=== PATIENT | male | born 1935 | race Caucasian/White ===

== ENCOUNTER 2017-06-01 09:05 | Inpatient (IN) | payer MEDICARE, OTHER ==
[~2017-06-01] VITALS: Ht 182.9 cm; Wt 94.6 kg
[2017-06-01] VITALS (12 sets, daily range): BP systolic 86–103; BP diastolic 50–59; PULSE 62–107; RESP 20–30; TEMP 99.2–99.4; O2SAT 89–95
[~2017-06-01 09:05] MED LIST: ASPI1TAB69 PO; LIPI10TA PO; PRESCAP6 PO; REST0.05 EACH EYE; ROPI8TAB PO; TIMO0.5S30 EACH EYE; VENL75TA PO; ZYRT10CA PO
[2017-06-01] MEDS ORDERED: SODIUM CHLOR 0.9% 1000 ML INJ 1,000 ML IV ONE (09:30)
[2017-06-01 09:40] LABS: BLOOD GAS BASE EXCESS 1.7 mmol/L (-2-2); BLOOD GAS CARBOXYHEMOGLOBIN 1.4 % (0-4); BLOOD GAS HCO3 25 mmol/L (22-26); BLOOD GAS METHEMOGLOBIN 0.8 % (0-2); BLOOD GAS O2 HGB SATURATION 90 % (90-100); BLOOD GAS OXYGEN CONTENT 17.8 Vol % (12.0-20.0); BLOOD GAS PCO2 33 mmHg (38-42); BLOOD GAS PO2 59 mmHG (61-120); BLOOD GAS TOTAL HGB 14.1 G/DL (12.0-16.0); CRITICAL VALUE YES; DRAW SITE RT RADIAL; FIO2 21 %; NUMBER OF ARTERIAL PUNCTURES 1; OXYGEN DEVICE ROOM AIR; STAT YES; TEMP CORR TO 98.6
[2017-06-01 09:47] LABS: AUTOMATED NEUTROPHIL # 6.2 TH/MM3 (1.8-7.7); BASOPHIL % 0.3 % (0.0-2.0); EOSINOPHIL % 0.2 % (0.0-4.0); HEMATOCRIT 42.2 % (39.0-51.0); HEMO FLAGS DIFF FINAL; LYMPH % 11.1 % (9.0-44.0); LYMPHOCYTE # 0.8 TH/MM3 (1.0-4.8); MEAN CELL VOLUME 89.6 FL (80.0-100.0); MEAN CORPUSCULAR HEMOGLOBIN 30.9 PG (27.0-34.0); MEAN CORPUSCULAR HGB CONC 34.5 % (32.0-36.0); MONO % 4.8 % (0.0-8.0); NEUT % 83.6 % (16.0-70.0); PLATELET COUNT 132 TH/MM3 (150-450); RED BLOOD COUNT 4.71 MIL/MM3 (4.50-5.90); RED CELL DISTRIBUTION WIDTH 13.8 % (11.6-17.2); WHITE BLOOD COUNT 7.4 TH/MM3 (4.0-11.0)
--- NOTE | 2017-06-01 09:50 | RADRPT ---
EXAM DATE/TIME: 06/01/2017 09:19 [facility] COMPARISON: No previous studies available for comparison. INDICATIONS : Cough and congestion. MEDICAL HISTORY : Parkinsons. SURGICAL HISTORY : Fusion, cervical. ENCOUNTER: Initial ACUITY: 3 days PAIN SCORE: 0/10 LOCATION: Bilateral chest FINDINGS: There is mild cardiomegaly and patchy left basilar airspace disease. Osseous structures are intact. N o effusions. CONCLUSION: Left lower lobe airspace disease. Victor Manuel Owens MD on June 01, 2017 at 9:47 Board Certified Radiologist. This report was verified electronically.
[2017-06-01 09:51] LABS: APTT (PATIENT) 27.3 SEC (24.3-30.1); PROTHROMBIN TIME - PATIENT 11.4 SEC (9.8-11.6)
--- NOTE | 2017-06-01 10:02 | RADRPT ---
EXAM DATE/TIME: 06/01/2017 09:41 [facility] COMPARISON: No previous studies available for comparison. INDICATIONS : Patient with weakness, increased confusion. ORAL CONTRAST: No oral contrast ingested. RADIATION DOSE: 10.55 CTDIvol (mGy) MEDICAL HISTORY : Parkinson's. Hypertension. Carcinoma, prostate. SURGICAL HISTORY : cervical laminectomy ENCOUNTER: Initial ACUITY: 1 day PAIN SCALE: 4/10 LOCATION: lower quadrant TECHNIQUE: Volumetric scanning of the abdomen and pelvis was performed. Using automated exposure control and ad justment of the mA and/or kV according to patient size, radiation dose was kept as low as reasonably achievable to obtain optimal diagnostic quality images. DICOM format image data is available electro nically for review and comparison. FINDINGS: There is mild dilatation of the ascending aorta up to 4.1 cm. Atherosclerotic calcification of the ao rta and iliac vasculature and coronary arteries identified. Urinary bladder is unremarkable. Small fa t-containing right inguinal hernia. The patient is status post prostatectomy with clips in the pelvis . There is diverticulosis of the sigmoid colon and descending colon as well as transverse and ascendi ng colon without diverticulitis. There are inflammatory changes seen in the right lower quadrant surr ounding a blind-ending tubular structure arising off the cecum measuring up to 10 mm in diameter. Thi s is characteristic of acute appendicitis. There is a small amount of free fluid adjacent to the tip the appendix and perforation is difficult to exclude. There is an appendicolith measuring 9.9 mm. The re is no adenopathy. Coarse calcifications of the right adrenal gland are identified. Calcified splen ic granulomas are present. Gallbladder unremarkable. A liver, pancreas, left kidney unremarkable. 4 c m right upper pole renal cyst. Lung bases are clear. Degenerative changes of the spine are noted. CONCLUSION: 1. Acute appendicitis. 2. Diverticulosis. 3. Atherosclerosis. 4. Right renal cyst. 5. Fat containing right inguinal hernia. Victor Manuel Owens MD on June 01, 2017 at 9:55 Board Certified Radiologist. This report was verified electronically.
--- NOTE | 2017-06-01 10:02 | PD ---
HPI Chief Complaint: General Weakness Time Seen by Provider: 09:12 Travel History International Travel<30 days: No Contact w/Intl Traveler<30days: No Traveled to known affect area: No History of Present Illness HPI GEN WEAKNESS PER FAMILY MEMBER OVER LAST 2 DAYS, IN PAST THIS HAS BEEN DUE TO UTI OR PNA. STATES OCCASIONAL COUGH BUT WITHOUT SPUTUM PRODUCTION. NO FEVER AT HOME. BUT IS REQUIRING MORE PHYSICAL ASSISTANCE THAN USUAL. ONLY MAJOR HX IS PARKINSON'S IS NOT OXYGEN DEPENDANT, AND HAS NO H/O COPD/EMPHYSEMA/OR/CHF. PFSH Past Medical History Asthma: No Autoimmune Disease: No Blood Disorders: No Depression: Yes Cancer: Yes (PROSTATE) Cardiovascular Problems: No High Cholesterol: Yes COPD: No Diabetes: No Patient Takes Glucophage: No Diminished Hearing: Yes (bilat) Endocrine: No Glaucoma: Yes Genitourinary: Yes (PROSTATE CANCER) Headaches: Yes Hepatitis: No Hiatal Hernia: No Hypertension: Yes Immune Disorder: No Musculoskeletal: Yes (ARTHRITIS) Neurologic: Yes (PARKINSON'S DISEASE) Parkinson's Disease: Yes Psychiatric: Yes Respiratory: No Immunizations Current: Yes Thyroid Disease: No Past Surgical History Abdominal Surgery: No AICD: No Body Medical Devices: PENILE PROTHESIS Cardiac Surgery: No Ear Surgery: No Endocrine Surgery: No Eye Surgery: Yes (BILATERAL CATARACT EXTRACTION W/LENS IMPLANT; ) Genitourinary Surgery: Yes (PROSTATECTOMY/PENILE IMPLANT) Joint Replacement: No Neurologic Surgery: Yes (ANTERIOR CERVICAL LAMINECTOMY ) Oral Surgery: No Pacemaker: No Prostatectomy: Yes Thoracic Surgery: No Tonsillectomy: Yes Other Surgery: Yes Social History Alcohol Use: No Tobacco Use: No Substance Use: No Allergies-Medications (Allergen,Severity, Reaction): Coded Allergies: Penicillin (Verified Allergy, Mild, 04/13/17) Tobrex (Verified Allergy, Mild, 04/13/17) Reported Meds & Prescriptions Reported Meds & Active Scripts Active Reported Gabapentin 100 Mg Cap 200 Mg PO HS Gabapentin 100 Mg Cap 100 Mg PO TID Sinemet (Carbidopa-Levodopa) 25-100 Mg Tab 2 Tab PO TID Tramadol (Tramadol HCl) 50 Mg Tab 50 Mg PO Q6H PRN Ropinirole 4 Mg Tab 4 Mg PO HS 14 Days Aleve (Naproxen Sodium) 220 Mg Capsule 220-440 Mg PO BID PRN Cetirizine (Cetirizine HCl) 10 Mg Tab 10 Mg PO DAILY Aspirin Adult Low Strength (Aspirin) 81 Mg Tabdr 81 Mg PO MOWEFR Take 1 tablet daily on Wednesday,Wednesday and Wednesday Ropinirole ER 2 Mg Tab 18 Mg PO DAILY Preservision-Lutein (Multiple Vitamins W/ Minerals) 1 Cap 1 Cap PO DAILY Restasis Opth 0.05% (Cyclosporine Opth 0.05%) 0.05% Emul 1 Drop EACH EYE BID Effexor (Venlafaxine HCl) 75 Mg Tab 75 Mg PO DAILY Lipitor (Atorvastatin Calcium) 10 Mg Tab 10 Mg PO HS Review of Systems ROS Limitations: Altered Mental Status General / Constitutional: Positive: Other (GEN WEAKNESS) Respiratory: Positive: Cough Physical Exam Narrative GENERAL: SKIN: Warm and dry. HEAD: Atraumatic. Normocephalic. EYES: Pupils equal and round. No scleral icterus. No injection or drainage. ENT: No nasal bleeding or discharge. Mucous membranes pink and moist. NECK: Trachea midline. No JVD. CARDIOVASCULAR: Regular rate and rhythm. RESPIRATORY: No accessory muscle use. CRACKLES OVER LEFT LUNG MOSLEY GASTROINTESTINAL: Abdomen soft, NONdistended. HOWEVER TTPERCUSSION THROUGHOUT LOWER QUADRANTS MUSCULOSKELETAL: Extremities without clubbing, cyanosis, or edema. No obvious deformities. NEUROLOGICAL: Awake and alert. No obvious cranial nerve deficits. Motor grossly within normal limits. Five out of 5 muscle strength in the arms and legs. Normal speech. RESTING TREMOR, FOLLOWS COMMANDS BUT GENERALLY WEAK AND REQUIRED ASSISTANCE TO TRANSFER TO BED PSYCHIATRIC: Appropriate mood and affect; insight and judgment normal. Data Data Last Documented VS Vital Signs Date Time Temp Pulse Resp B/P Pulse Ox O2 Delivery O2 Flow Rate FiO2 06/01/17 10:30 80 24 98/58 93 Nasal Cannula 2 06/01/17 09:06 99.2 Orders Electrocardiogram (06/01/17 09:13) Complete Blood Count With Diff (06/01/17 09:13) Comprehensive Metabolic Panel (06/01/17 09:13) Prothrombin Time / Inr (Pt) (06/01/17 09:13) Act Partial Throm Time (Ptt) (06/01/17 09:13) Lactic Acid Sepsis Protocol (06/01/17 09:13) Lipase (06/01/17 09:13) Ckmb (Isoenzyme) Profile (06/01/17 09:13) Troponin I (06/01/17 09:13) Urinalysis - C+S If Indicated (06/01/17 09:13) Influenzae A/B Antigen (06/01/17 09:13) Blood Culture (06/01/17 09:13) Chest, Single Ap (06/01/17 09:13) Arterial Blood Gas (Abg) (06/01/17 09:13) Blood Glucose (06/01/17 09:13) Ecg Monitoring (06/01/17 09:13) Iv Access Insert/Monitor (06/01/17 09:13) Oximetry (06/01/17 09:13) Oxygen Administration (06/01/17 09:13) Urinary Catheter Insert/Apply (06/01/17 09:13) Sodium Chlor 0.9% 1000 Ml Inj (Ns 1000 M (06/01/17 09:30) Ct Abd/Pel W/O Iv Contrast (06/01/17 09:24) Levofloxacin 500 Mg Premix Inj (Levaquin (06/01/17 10:15) Sodium Chlorid 0.9% 500 Ml Inj (Ns 500 M (06/01/17 10:15) Metronidazole 500 Mg Inj (Flagyl 500 Mg (06/01/17 10:16) Norepinephrine-Dextrose Drip (Levophed-D (06/01/17 10:30) Admit Order (Ed Use Only) (06/01/17 11:05) Labs Laboratory Tests Test 06/01/17 06/01/17 09:30 09:31 Blood Gas Puncture Site RT RADIAL Blood Gas Patient Temperature 98.6 Blood Gas HCO3 25 mmol/L Blood Gas Base Excess 1.7 mmol/L Blood Gas Oxygen Saturation 90 % Arterial Blood pH 7.49 Arterial Blood Partial 33 mmHg Pressure CO2 Arterial Blood Partial 59 mmHG Pressure O2 Arterial Blood Oxygen Content 17.8 Vol % Arterial Blood 1.4 % Carboxyhemoglobin Arterial Blood Methemoglobin 0.8 % Blood Gas Hemoglobin 14.1 G/DL Oxygen Delivery Device ROOM AIR Blood Gas Inspired Oxygen 21 % White Blood Count 7.4 TH/MM3 Red Blood Count 4.71 MIL/MM3 Hemoglobin 14.5 GM/DL Hematocrit 42.2 % Mean Corpuscular Volume 89.6 FL Mean Corpuscular Hemoglobin 30.9 PG Mean Corpuscular Hemoglobin 34.5 % Concent Red Cell Distribution Width 13.8 % Platelet Count 132 TH/MM3 Mean Platelet Volume 10.1 FL Neutrophils (%) (Auto) 83.6 % Lymphocytes (%) (Auto) 11.1 % Monocytes (%) (Auto) 4.8 % Eosinophils (%) (Auto) 0.2 % Basophils (%) (Auto) 0.3 % Neutrophils # (Auto) 6.2 TH/MM3 Lymphocytes # (Auto) 0.8 TH/MM3 Monocytes # (Auto) 0.4 TH/MM3 Eosinophils # (Auto) 0.0 TH/MM3 Basophils # (Auto) 0.0 TH/MM3 CBC Comment DIFF FINAL Differential Comment Prothrombin Time 11.4 SEC Prothromb Time International 1.0 RATIO Ratio Activated Partial 27.3 SEC Thromboplast Time Sodium Level 138 MEQ/L Potassium Level 3.8 MEQ/L Chloride Level 104 MEQ/L Carbon Dioxide Level 25.7 MEQ/L Anion Gap 8 MEQ/L Blood Urea Nitrogen 19 MG/DL Creatinine 1.15 MG/DL Estimat Glomerular Filtration 61 ML/MIN Rate Random Glucose 112 MG/DL Lactic Acid Level 1.2 mmol/L Calcium Level 8.8 MG/DL Total Bilirubin 1.0 MG/DL Aspartate Amino Transf 16 U/L (AST/SGOT) Alanine Aminotransferase 8 U/L (ALT/SGPT) Alkaline Phosphatase 52 U/L Total Creatine Kinase 87 U/L Troponin I LESS THAN 0.02 NG/ML Total Protein 6.8 GM/DL Albumin 3.7 GM/DL Lipase 94 U/L [facility] Medical Decision Making Medical Screen Exam Complete: Yes Emergency Medical Condition: Yes Medical Record Reviewed: Yes Interpretation(s) (HEAVY MOTION ARTIFACT DUE TO PARKINSON'S) EKG: NSR 91, IRBBB PATTERN, NO OBVIOUS STEMI PATTERN NOTED..................ABG ON RA (NL PH AND PCO2 HOWEVER HYPOXEMIA OF 58.5, WILL ADD SUPPLEMENTAL OXYGEN) Differential Diagnosis SEPSIS (SOURCE PNA V ABD V UTI) AMS DUE TO ELECTROLYTE/HYPOTENSION/HYPOXEMIA Narrative Course PATIENT ARRIVED HYPOTENSIVE AND C/O GEN WEAKNESS, DURING EVALUATION WAS FOUND TO HAVE LLL PNA WITH HYPOXEMIA, GIVEN SUPPLEMENTAL OXYGEN AND LEVAQUIN SHERI. HYPOTENSION RESPONDED TO IVF BOLUS SBP INCREASE FROM 80'S TO 95 ON 1 L NS. THEN ADDED IVF NS 500ML AND MAINTAINED AROUND HIGH 90'S TO LOW 100 SBP, STANDBY NOREPI AVAILABLE IN CASE PATIENT REQUIRES IT. ONCE RETURNED FROM CT FOUND TO HAVE APPY, STARTED FLAGYL AND CALLED DR DANIELLE. ALSO D/W DR BEYER. PATIENT HAS DECREASED PAIN AND SBP HAS REMAINED NEAR 100 SYSTOLIC, PT CONTINUES TO BE A/O X 4....ALTHOUGH HE WAS ADDED TO SURGERY LIST, UNFORTUNATELY THERE ARE MULTIPLE CRITICAL SURGICAL CASES AHEAD OF HIM, DR DANIELLE STANDING BY TO OPERATE SOON OR OPENS. Critical Care Narrative CRITICAL CARE NOTE: With evaluation of the patient, labs, EKG, receipt of radiologic studies, administration of medications, reevaluation the patient and discussion of the patient with the admitting physicians, the total critical care time was [60] minutes. Time to perform other separately billable procedures was not included in the critical care time. Physician Communication Physician Communication CASE DISCUSSED FULLY WITH DR DANIELLE (GEN DEE) AT 1022 (CALLED AT [address] REVIEWED) AT [address] BEYER (LEAD APPLICATION ARCHITECT) WHO WILL COME SEE PATIENT IN ED WITHIN 15MIN. Diagnosis Primary Impression: ACUTE APPENDICITIS Additional Impressions: LLL PNEUMONIA WITH HYPOXEMIA HYPOTENSION Sharif Hauser MD Jun 01, 2017 10:02
[2017-06-01 10:07] LABS: ANION GAP 8 MEQ/L (5-15); AST (GOT) 16 U/L (15-37); BICARBONATE 25.7 MEQ/L (21.0-32.0); BLOOD UREA NITROGEN 19 MG/DL (7-18); CHLORIDE 104 MEQ/L (98-107); GLOMERULAR FILTRATION RATE 61 ML/MIN (>89); POTASSIUM 3.8 MEQ/L (3.5-5.1); SODIUM (NA) 138 MEQ/L (136-145)
[2017-06-01 10:08] LABS: ALT (GPT) 8 U/L (12-78)
[2017-06-01 10:11] LABS: ALKALINE PHOSPHATASE 52 U/L (45-117)
[2017-06-01] MEDS ORDERED: LEVOFLOXACIN 500 MG PREMIX INJ 100 ML IV ONE (10:15)
[2017-06-01] MEDS ORDERED: SODIUM CHLORID 0.9% 500 ML INJ 500 ML IV ONE (10:15)
[2017-06-01] MEDS ORDERED: metroNIDAZOLE 500 MG INJ 100 ML IV STA (10:16)
[2017-06-01 10:26] LABS: CREATINE KINASE 87 U/L (39-308)
[2017-06-01] MEDS ORDERED: NOREPINEPHRINE-DEXTROSE DRIP 250 ML IV SCH (10:30)
[2017-06-01] MEDS ORDERED: CETI10 PO (10:54)
[2017-06-01] MEDS ORDERED: ROPI2TAB23 PO (10:54)
[2017-06-01] MEDS ORDERED: ROPI4TAB PO (10:54)
[2017-06-01] MEDS ORDERED: NAPR220C22 PO (10:54)
[2017-06-01] MEDS ORDERED: SINE25TA PO (10:54)
[2017-06-01] MEDS ORDERED: GABA100C4 PO ×2 (10:54)
[2017-06-01] MEDS ORDERED: ASPI1TAB91 PO (10:54)
[2017-06-01] MEDS ORDERED: TRAM50TA PO (10:54)
[2017-06-01] MEDS ORDERED: ONDANSETRON HCL 4 MG/2 ML VIAL IV PUSH ONE (12:00)
[2017-06-01] MEDS ORDERED: NEOSTIGMINE 3 MG/3 ML SYR IV ONE (12:00)
[2017-06-01] MEDS ORDERED: PHENYLEPH/NS 1000 MCG/10 ML SYR IV ONE (12:00)
[2017-06-01] MEDS ORDERED: PROPOFOL 200 MG/20 ML AMP IV ONE (12:00)
[2017-06-01] MEDS ORDERED: MAGNESIUM HYDROXIDE SUSP 30 ML CUP PO PRN (12:15)
[2017-06-01] MEDS ORDERED: ONDANSETRON HCL 4 MG/2 ML VIAL IV PRN (12:15)
[2017-06-01] MEDS ORDERED: CHLORHEXIDINE GLUCONATE 2 % 1 PACK (2 CLOTHS) TOP PRN (12:15)
[2017-06-01] MEDS ORDERED: MISCELLANEOUS NURSING INFORMATION XX SCH (12:15)
[2017-06-01] MEDS ORDERED: METOCLOPRAMIDE HCL 10 MG/2 ML VIAL IV PRN (12:15)
[2017-06-01] MEDS ORDERED: SODIUM CHLORIDE 0.9% FLUSH 10 ML FLUSH IV FLUSH PRN (12:15)
[2017-06-01] MEDS ORDERED: LACTULOSE SYRUP 20 GM/30 ML CUP PO PRN (12:15)
[2017-06-01] MEDS ORDERED: SENNOSIDES 8.6 MG TAB PO PRN (12:15)
[2017-06-01] MEDS ORDERED: RESP: ALBUTEROL 2.5 MG/IPRATROPIUM 0.5 MG NEB (PRN) INH (12:15)
[2017-06-01] MEDS ORDERED: ACETAMINOPHEN 325 MG TAB PO PRN (12:15)
[2017-06-01] MEDS ORDERED: BISACODYL 10 MG SUPP RECTAL PRN (12:15)
--- NOTE | 2017-06-01 12:27 | HHI.HP ---
HPI Service Critical Care Medicine Primary Care Physician Amelia Melvin MD Admission Diagnosis ACUTE APPY/LLL PNA WITH HYPOXEMIA/SEPTIC SHOCK Diagnosis: Chief Complaint: Abdominal pain Travel History International Travel<30 Days: No Contact w/Intl Traveler <30 Da: No Traveled to Known Affected Are: No Sepsis Criteria SIRS Criteria (2 or more): Heart rate over 90 History of Present Illness HPI: s 82-year-old male with a medical history significant for Parkinson's disease who developed lower abdominal pain 1 day prior to presentation. He was noted to be hypotensive on arrival in the ER. Hypotension responded to 1 L fluid bolus. He underwent imaging studies including CT abdomen and pelvis which revealed acute appendicitis. Chest x-ray showed a left lower lobe infiltrate. Ration was initiated on empiric antibiotic coverage with IV Levaquin and Flagyl. Dr. Stewart from general surgery was contacted and per ER physician is planning appendectomy today. Critical care service was contacted to accept patient for admission. When I evaluated the patient and the ER he was resting in the ER stretcher comfortably did not appear to be in any acute distress. History was obtained by discussion with patient and his family members as well as reviewing records and discussion with ER physician and ER nursing staff. History PFSH Past Medical History Asthma: No Autoimmune Disease: No Blood Disorders: No Depression: Yes Cancer: Yes (PROSTATE) Cardiovascular Problems: No High Cholesterol: Yes COPD: No Diabetes: No Patient Takes Glucophage: No Diminished Hearing: Yes (bilat) Endocrine: No Glaucoma: Yes Genitourinary: Yes (PROSTATE CANCER) Headaches: Yes Hepatitis: No Hiatal Hernia: No Hypertension: Yes Immune Disorder: No Musculoskeletal: Yes (ARTHRITIS) Neurologic: Yes (PARKINSON'S DISEASE) Parkinson's Disease: Yes Psychiatric: Yes Respiratory: No Immunizations Current: Yes Thyroid Disease: No Past Surgical History Abdominal Surgery: No AICD: No Body Medical Devices: PENILE PROTHESIS Cardiac Surgery: No Ear Surgery: No Endocrine Surgery: No Eye Surgery: Yes (BILATERAL CATARACT EXTRACTION W/LENS IMPLANT; ) Genitourinary Surgery: Yes (PROSTATECTOMY/PENILE IMPLANT) Joint Replacement: No Neurologic Surgery: Yes (ANTERIOR CERVICAL LAMINECTOMY ) Oral Surgery: No Pacemaker: No Prostatectomy: Yes Thoracic Surgery: No Tonsillectomy: Yes Other Surgery: Yes Social History Alcohol Use: No Tobacco Use: No Substance Use: No Allergies-Medications Allergies-Medications (Allergen,Severity, Reaction): Coded Allergies: Penicillin (Verified Allergy, Mild, 04/13/17) Tobrex (Verified Allergy, Mild, 04/13/17) Reported Meds & Prescriptions Reported Meds & Active Scripts Active Reported Gabapentin 100 Mg Cap 200 Mg PO HS Gabapentin 100 Mg Cap 100 Mg PO TID Sinemet (Carbidopa-Levodopa) 25-100 Mg Tab 2 Tab PO TID Tramadol (Tramadol HCl) 50 Mg Tab 50 Mg PO Q6H PRN Ropinirole 4 Mg Tab 4 Mg PO HS 14 Days Aleve (Naproxen Sodium) 220 Mg Capsule 220-440 Mg PO BID PRN Cetirizine (Cetirizine HCl) 10 Mg Tab 10 Mg PO DAILY Aspirin Adult Low Strength (Aspirin) 81 Mg Tabdr 81 Mg PO MOWEFR Take 1 tablet daily on Wednesday,Wednesday and Wednesday Ropinirole ER 2 Mg Tab 18 Mg PO DAILY Preservision-Lutein (Multiple Vitamins W/ Minerals) 1 Cap 1 Cap PO DAILY Restasis Opth 0.05% (Cyclosporine Opth 0.05%) 0.05% Emul 1 Drop EACH EYE BID Effexor (Venlafaxine HCl) 75 Mg Tab 75 Mg PO DAILY Lipitor (Atorvastatin Calcium) 10 Mg Tab 10 Mg PO HS ROS Review of Systems ROS Limitations: Altered Mental Status General / Constitutional: Positive: Other (GEN WEAKNESS) Respiratory: Positive: Cough GI: Abd pain Physical Exam Vital Signs Vital Signs Date Time Temp Pulse Resp B/P Pulse Ox O2 Delivery O2 Flow Rate FiO2 06/01/17 11:37 80 26 101/59 94 Nasal Cannula 2 06/01/17 09:23 92 Nasal Cannula 2 06/01/17 09:23 92 Nasal Cannula 2 06/01/17 09:19 93 26 94/58 90 06/01/17 09:06 99.2 99 20 86/53 91 Room Air Physical Exam HEENT/Neuro: No pallor or icterus, tongue moist, NEO, Awake alert oriented 3 , nonfocal grossly, moving all 4 extremities Neck: No JVD Chest/pulmonary: CTA bilaterally Cardiovascular: S1-S2 regular no gallop or murmur GI/abdomen: Soft, tenderness in lower abdomen especially right lower quadrant with minimal guarding, bowel sounds present. No organomegaly appreciated Extremities: Warm bilaterally, no edema Laboratory Laboratory Tests Test 06/01/17 06/01/17 09:30 09:31 Blood Gas Puncture Site RT RADIAL Blood Gas Patient Temperature 98.6 Blood Gas HCO3 25 Blood Gas Base Excess 1.7 Blood Gas Oxygen Saturation 90 Arterial Blood pH 7.49 Arterial Blood Partial 33 Pressure CO2 Arterial Blood Partial 59 Pressure O2 Arterial Blood Oxygen Content 17.8 Arterial Blood 1.4 Carboxyhemoglobin Arterial Blood Methemoglobin 0.8 Blood Gas Hemoglobin 14.1 Oxygen Delivery Device ROOM AIR Blood Gas Inspired Oxygen 21 White Blood Count 7.4 Red Blood Count 4.71 Hemoglobin 14.5 Hematocrit 42.2 Mean Corpuscular Volume 89.6 Mean Corpuscular Hemoglobin 30.9 Mean Corpuscular Hemoglobin 34.5 Concent Red Cell Distribution Width 13.8 Platelet Count 132 Mean Platelet Volume 10.1 Neutrophils (%) (Auto) 83.6 Lymphocytes (%) (Auto) 11.1 Monocytes (%) (Auto) 4.8 Eosinophils (%) (Auto) 0.2 Basophils (%) (Auto) 0.3 Neutrophils # (Auto) 6.2 Lymphocytes # (Auto) 0.8 Monocytes # (Auto) 0.4 Eosinophils # (Auto) 0.0 Basophils # (Auto) 0.0 CBC Comment DIFF FINAL Differential Comment Prothrombin Time 11.4 Prothromb Time International 1.0 Ratio Activated Partial 27.3 Thromboplast Time Sodium Level 138 Potassium Level 3.8 Chloride Level 104 Carbon Dioxide Level 25.7 Anion Gap 8 Blood Urea Nitrogen 19 Creatinine 1.15 Estimat Glomerular Filtration 61 Rate Random Glucose 112 Lactic Acid Level 1.2 Calcium Level 8.8 Total Bilirubin 1.0 Aspartate Amino Transf 16 (AST/SGOT) Alanine Aminotransferase 8 (ALT/SGPT) Alkaline Phosphatase 52 Total Creatine Kinase 87 Troponin I LESS THAN 0.02 Total Protein 6.8 Albumin 3.7 Lipase 94 Date/Time Procedure Status Source Growth 06/01/17 10:09 Influenza Types A,B Antigen (ANNA) - Final Complete Nasal Washing NEGATIVE FOR FLU A AND B ANTIGEN.... 06/01/17 09:29 Aerobic Blood Culture Received Blood Peripheral Pending 06/01/17 09:29 Anaerobic Blood Culture Received Blood Peripheral Pending Result Diagram: 06/01/1731 06/01/17930 Imaging Last Impressions Abdomen/Pelvis CT 06/01/17923 Signed Impressions: Service Date/Time: Thursday, June 01, 2017 09:41 - CONCLUSION: 1. Acute appendicitis. 2. Diverticulosis. 3. Atherosclerosis. 4. Right renal cyst. 5. Fat containing right inguinal hernia. Victor Manuel Owens MD Chest X-Ray 06/01/1713 Signed Impressions: Service Date/Time: Thursday, June 01, 2017 09:19 - CONCLUSION: Left lower lobe airspace disease. Victor Manuel Owens MD Assessment and Plan Assessment and Plan 82-year-old male with: Abdominal pain Acute appendicitis Hypotension Parkinson's disease History of prostate cancer Plan: Neuro: Resume medications for Parkinson's when cleared by general surgery. Currently nothing by mouth. Follow neuro status. Cardiovascular: Status post 1.5 L normal saline bolus. We'll continue maintenance IV fluids with normal saline at 100 cc an hour. Watch for hypotension. Pulmonary: Supplemental O2 as needed. GI/liver: Keep patient nothing by mouth. Gen. surgery consulted for acute appendicitis. ER physician as already discussed with Dr. Stewart and I was informed that patient will be going to the OR. Renal/: Strict intake output, monitor and replete elect lites, follow BUN/ creatinine. IV hydration ID: Empiric antibiotic coverage with IV Levaquin and Flagyl. Follow-up cultures. Endocrine: Watch for hyperglycemia, SSI for glycemic control if needed. Prophylaxis: PPI/SCDs. Subcutaneous heparin when okay with general surgery. Discussed with patient as well as his family members at bedside regarding current clinical status and plan of care and they voiced understanding. Further recommendations per general surgery. Varghese Lama MD Jun 01, 2017 12:27
[2017-06-01] MEDS: SODIUM CHLOR 0.9% 1000 ML INJ 1,000 ML IV SCH ×2 (12:30→21:22)
[2017-06-01] MEDS: PANTOPRAZOLE SODIUM 40 MG VIAL IV SCH (12:59)
--- NOTE | 2017-06-01 13:07 | PD.CONS ---
HPI Service General surgery Consult Requested By Reason for Consult Appendicitis Primary Care Physician Amelia Melvin MD History of Present Illness Mr. Huffman is an 82-year-old male presents with weakness and abdominal pain. He felt poorly for a couple of days and he has a history of pneumonia and presented to the emergency department. On exam by the emergency department physician he had significant abdominal pain and therefore CT scan of the abdomen and pelvis was ordered. He was noted to have acute appendicitis. The patient's initial systolic blood pressure was in the 90s and he said some hypoxia requiring O2 administration. There was also concern for left lower lobe pneumonia on chest x-ray. White blood count is normal but he does have elevated neutrophil percentage. His daughter who is an intensive care nurse was present with him. Last night he did have increase in his baseline tremor which sounds as if it may have been secondary to fever and chills. His daughter reports his temperature was taken at home and it was 101.8. Review of Systems Constitutional: COMPLAINS OF: Fever, Chills Eyes: DENIES: Eye inflammation, Eye pain Respiratory: COMPLAINS OF: Cough Cardiovascular: DENIES: Chest pain, Palpitations Gastrointestinal: COMPLAINS OF: Abdominal pain, DENIES: Nausea, Vomiting Integumentary: DENIES: Pruritus, Rash Neurologic: COMPLAINS OF: Tremor, DENIES: Seizures Psychiatric: DENIES: Confusion, Mood changes Past Family Social History Past Medical History Parkinson's disease Prostate cancer Past Surgical History Prostatectomy Cervical laminectomy Shoulder surgery Reported Medications Reported Meds & Active Scripts Active Reported Gabapentin 100 Mg Cap 200 Mg PO HS Gabapentin 100 Mg Cap 100 Mg PO TID Sinemet (Carbidopa-Levodopa) 25-100 Mg Tab 2 Tab PO TID Tramadol (Tramadol HCl) 50 Mg Tab 50 Mg PO Q6H PRN Ropinirole 4 Mg Tab 4 Mg PO HS 14 Days Aleve (Naproxen Sodium) 220 Mg Capsule 220-440 Mg PO BID PRN Cetirizine (Cetirizine HCl) 10 Mg Tab 10 Mg PO DAILY Aspirin Adult Low Strength (Aspirin) 81 Mg Tabdr 81 Mg PO MOWEFR Take 1 tablet daily on Wednesday,Wednesday and Wednesday Ropinirole ER 2 Mg Tab 18 Mg PO DAILY Preservision-Lutein (Multiple Vitamins W/ Minerals) 1 Cap 1 Cap PO DAILY Restasis Opth 0.05% (Cyclosporine Opth 0.05%) 0.05% Emul 1 Drop EACH EYE BID Effexor (Venlafaxine HCl) 75 Mg Tab 75 Mg PO DAILY Lipitor (Atorvastatin Calcium) 10 Mg Tab 10 Mg PO HS Allergies: Coded Allergies: Penicillin (Verified Allergy, Mild, 04/13/17) Tobrex (Verified Allergy, Mild, 04/13/17) Active Ordered Medications Current Medications Medications (Trade) Dose Ordered Sig/Alden Route Start Time Stop Time Status Last Admin Norepinephrine Bitartrate 250 ml @ 0 mls/hr TITRATE IV 06/01/17 10:30 (NS 1000 ml Inj) 1,000 ml @ 100 mls/hr Q10H IV 06/01/17 12:00 06/01/17 12:30 (NS Flush) 2 ml UNSCH PRN IV FLUSH 06/01/17 12:15 (NS Flush) 2 ml BID IV FLUSH 06/01/17 21:00 (Tylenol) 650 mg Q6H PRN PO 06/01/17 12:15 (Protonix Inj) 40 mg DAILY IV 06/01/17 12:30 06/01/17 12:59 (Zofran Inj) 4 mg Q6H PRN IV 06/01/17 12:15 (Reglan Inj) 10 mg Q6H PRN IV 06/01/17 12:15 Miscellaneous Information 1 [id number] XX 06/01/17 12:15 (Chlorhexidine 2% Cloth) 3 pack Taper DAILY@04 TOP 06/02/17 04:00 05/29/18 03:59 (Chlorhexidine 2% Cloth) 3 pack UNSCH PRN TOP 06/01/17 12:15 (Lolis-Colace) 1 tab BID PO 06/02/17 09:00 (Milk Of Magnesia Liq) 30 ml Q12H PRN PO 06/01/17 12:15 (Senokot) 17.2 mg Q12H PRN PO 06/01/17 12:15 (Dulcolax Supp) 10 mg DAILY PRN RECTAL 06/01/17 12:15 Lactulose 30 ml 30 ml DAILY PRN PO 06/01/17 12:15 Levofloxacin/ Dextrose 100 ml @ 100 mls/hr Q24H IV 06/02/17 11:00 (Flagyl 500 Mg Inj) 100 ml @ 100 mls/hr Q8H IV 06/01/17 18:00 Family History Noncontributory Social History No alcohol tobacco or drug use. He is . His daughter is a nurse. Physical Exam Vital Signs Vital Signs Date Time Temp Pulse Resp B/P Pulse Ox O2 Delivery O2 Flow Rate FiO2 06/01/17 11:37 80 26 101/59 94 Nasal Cannula 2 06/01/17 09:23 92 Nasal Cannula 2 06/01/17 09:23 92 Nasal Cannula 2 06/01/17 09:19 93 26 94/58 90 06/01/17 09:06 99.2 99 20 86/53 91 Room Air Physical Exam GENERAL: Awake and alert. No acute distress. Cooperative. Somewhat frail. Generalized tremor. HEAD: Normocephalic. Atraumatic. EYES: Pupils equal round and reactive to light bilaterally. No scleral icterus. CHEST: Lungs clear to auscultation bilaterally with no wheezing or rhonchi. No respiratory distress. CARDIOVASCULAR: Regular rate and rhythm. ABDOMEN: Soft and nondistended. Well-healed lower midline scar. Mild rebound tenderness right lower quadrant with moderate to severe tenderness to palpation. EXTREMITIES: No cyanosis or edema. SKIN: Warm, dry, nonjaundiced. Laboratory Laboratory Tests Test 06/01/17 06/01/17 09:30 09:31 Blood Gas Puncture Site RT RADIAL Blood Gas Patient Temperature 98.6 Blood Gas HCO3 25 Blood Gas Base Excess 1.7 Blood Gas Oxygen Saturation 90 Arterial Blood pH 7.49 Arterial Blood Partial 33 Pressure CO2 Arterial Blood Partial 59 Pressure O2 Arterial Blood Oxygen Content 17.8 Arterial Blood 1.4 Carboxyhemoglobin Arterial Blood Methemoglobin 0.8 Blood Gas Hemoglobin 14.1 Oxygen Delivery Device ROOM AIR Blood Gas Inspired Oxygen 21 White Blood Count 7.4 Red Blood Count 4.71 Hemoglobin 14.5 Hematocrit 42.2 Mean Corpuscular Volume 89.6 Mean Corpuscular Hemoglobin 30.9 Mean Corpuscular Hemoglobin 34.5 Concent Red Cell Distribution Width 13.8 Platelet Count 132 Mean Platelet Volume 10.1 Neutrophils (%) (Auto) 83.6 Lymphocytes (%) (Auto) 11.1 Monocytes (%) (Auto) 4.8 Eosinophils (%) (Auto) 0.2 Basophils (%) (Auto) 0.3 Neutrophils # (Auto) 6.2 Lymphocytes # (Auto) 0.8 Monocytes # (Auto) 0.4 Eosinophils # (Auto) 0.0 Basophils # (Auto) 0.0 CBC Comment DIFF FINAL Differential Comment Prothrombin Time 11.4 Prothromb Time International 1.0 Ratio Activated Partial 27.3 Thromboplast Time Sodium Level 138 Potassium Level 3.8 Chloride Level 104 Carbon Dioxide Level 25.7 Anion Gap 8 Blood Urea Nitrogen 19 Creatinine 1.15 Estimat Glomerular Filtration 61 Rate Random Glucose 112 Lactic Acid Level 1.2 Calcium Level 8.8 Total Bilirubin 1.0 Aspartate Amino Transf 16 (AST/SGOT) Alanine Aminotransferase 8 (ALT/SGPT) Alkaline Phosphatase 52 Total Creatine Kinase 87 Troponin I LESS THAN 0.02 Total Protein 6.8 Albumin 3.7 Lipase 94 Date/Time Procedure Status Source Growth 06/01/17 10:09 Influenza Types A,B Antigen (ANNA) - Final Complete Nasal Washing NEGATIVE FOR FLU A AND B ANTIGEN.... 06/01/17 09:29 Aerobic Blood Culture Received Blood Peripheral Pending 06/01/17 09:29 Anaerobic Blood Culture Received Blood Peripheral Pending Result Diagram: 06/01/1793006/01/17930 Imaging Last Impressions Abdomen/Pelvis CT 06/01/17923 Signed Impressions: Service Date/Time: Thursday, June 01, 2017 09:41 - CONCLUSION: 1. Acute appendicitis. 2. Diverticulosis. 3. Atherosclerosis. 4. Right renal cyst. 5. Fat containing right inguinal hernia. Victor Manuel Owens MD Chest X-Ray 06/01/17912 Signed Impressions: Service Date/Time: Thursday, June 01, 2017 09:19 - CONCLUSION: Left lower lobe airspace disease. Victor Manuel Owens MD Assessment and Plan Assessment and Plan 82-year-old male with acute appendicitis causing sepsis and hypotension responsive to IV fluids. He has received fluid bolus in the emergency department with improvement in blood pressure with systolic in the mid 90s. He is also received IV antibiotics. Plan proceed with laparoscopic appendectomy, possible open today. I discussed details risks and benefit of the procedure with patient and his daughter. They understand and desire to proceed. TerryGonzalez MD Jun 01, 2017 13:07
--- NOTE | 2017-06-01 13:08 | EKG ---
Date Performed: 06/01/2017 Time Performed: 09:24:34 PTAGE: 82 years EKG: Sinus rhythm BORDERLINE LEFT AXIS DEVIATION LOW QRS VOLTAGE IN EXTREMITY LEADS INCOMPLETE RIGHT BUNDLE BRANCH BLO CK BORDERLINE ECG PREVIOUS TRACING : 10/10/2013 10.46 Compared to prior tracing no significant change DOCTOR: Raffaele Liu Interpretating Date/Time 06/01/2017 13:07:03
[2017-06-01 16:09] LABS: BLOOD, URINE NEG (NEG); GLUCOSE,URINE NEG (NEG); HYALINE CAST, URINE 1 /lpf (RARE); KETONE, URINE 10 mg/dL (NEG); MUCUS URINE FEW /lpf (OCC); NITRITE,URINE NEG (NEG); PH, URINE 5.5 (5.0-8.5); URINE COLOR YELLOW (YELLW/STRAW)
[2017-06-01] MEDS: RESP: ALBUTEROL 2.5 MG/IPRATROPIUM 0.5 MG NEB (SCH) INH ×2 (16:10→20:50)
[2017-06-01 16:12] LABS: COMMENT (UR) CATH-CULT NOT IND; CULTURE IF INDICATED CATH CULTURE NOT IND
[2017-06-01] MEDS ORDERED: BUPIVACAINE HCL PF 0.5% 30 ML VIAL INFIL ONE (17:30)
[2017-06-01] MEDS: metroNIDAZOLE 500 MG INJ 100 ML IV SCH ×2 (17:33→18:00)
--- NOTE | 2017-06-01 18:26 | PD.OP ---
cc: Gonzalez Stewart MD Operative Report Date of Surgery: Jun 01, 2017 Preoperative Diagnosis: (1) Acute appendicitis Postoperative Diagnosis: (1) Acute appendicitis Procedure: Lap Appendectomy Anesthesia: GETA Surgeon: Gonzalez Stewart Roll Forming Supervisor(s): Hilda BLANDON Operation and Findings: EBL: 5 cc Complications: None apparent Operative findings: Cecum and the right upper quadrant with distended inflamed appendix with surrounding exudate. Cloudy fluid in the right lower quadrant. Procedure in detail: The patient was taken to the operating room placed in the supine position with left arm tucked. General endotracheal anesthesia was induced and the abdomen was prepped and draped in usual sterile fashion. Surgical timeout was performed to verify correct patient procedure and site. Perioperative antibiotics were administered as necessary. Local anesthetic was injected in the skin and subcutaneous tissue in the left mid abdomen due to previous prostatectomy and a 5 mm incision made. Using the 5 mm Optiview trocar with laparoscope the abdomen was directly entered. Was then insufflated to 15 mmHg with CO2 gas which the patient tolerated well. The patient was then placed in Trendelenburg position and turned slightly to the left. A 12 mm port was placed under laparoscopic visualization of the left lower abdomen at the site of a previous scar and a 5 mm port in the left upper quadrant. Attention was turned to the right lower quadrant and there was cloudy fluid present. The appendix was not seen. The small bowel was run until the ileocecal valve was identified in the right upper quadrant. The cecum was identified and the appendix was diving deep to the cecum. It was gently grasped and elevated and freed from surrounding tissue with the Harmonic scalpel. The appendix was inflamed and distended with exudate present. The mesoappendix was taken down with the Harmonic scalpel. Two #1 PDS Endoloops were placed at the base the appendix and the appendix transected with Harmonic scalpel. It was then removed using an Endo Catch bag. The appendiceal stump was intact with no leakage. The entire right side of the abdomen and the pelvis was copiously irrigated. The fascia at the 12 mm port site was closed with a single 0 Vicryl suture. Skin closed with subcuticular Monocryl as well as Dermabond. The patient tolerated the procedure well was extubated and taken to PACU in stable condition. Gonzalez Stewart MD Jun 01, 2017 18:26
[2017-06-01] MEDS ORDERED: ACETAMINOPHEN/HYDROcodone 325 MG/5 MG TAB PO PRN (18:30)
[2017-06-01] MEDS ORDERED: fentaNYL CITRATE 250 MCG/5 ML AMP ONE (18:43)
[2017-06-01] MEDS ORDERED: MIDAZOLAM HCL 2 MG/2 ML VIAL ONE (18:43)
[2017-06-01] MEDS ORDERED: DO NOT ADM ANY ANTICOAGULANT DRUGS PRN (18:45)
[2017-06-01] MEDS ORDERED: CYCLOSPORINE OPTH 0.05% EACH EYE SCH (21:00)
[2017-06-01] MEDS ORDERED: ROPINIROLE 4 MG PO SCH (21:00)
[2017-06-01] MEDS ORDERED: NON-FORMULARY DRUG (Cyclosporine Opth 0.05% (Restasis Opth 0.05%) 1 DROP) EACH EYE SCH (21:00)
[2017-06-01] MEDS: GABAPENTIN 100 MG CAP PO SCH (21:21)
[2017-06-01] MEDS: SODIUM CHLORIDE 0.9% FLUSH 10 ML FLUSH IV FLUSH SCH (21:21)
[2017-06-02] VITALS (13 sets, daily range): BP systolic 97–114; BP diastolic 54–67; PULSE 57–80; RESP 17–24; TEMP 96.7–98.9; O2SAT 88–97
[2017-06-02] MEDS: metroNIDAZOLE 500 MG INJ 100 ML IV SCH ×3 (02:10→17:25)
[2017-06-02] MEDS: CHLORHEXIDINE GLUCONATE 2 % 1 PACK (2 CLOTHS) TOP SCH (03:07)
[2017-06-02] MEDS: RESP: ALBUTEROL 2.5 MG/IPRATROPIUM 0.5 MG NEB (SCH) INH ×4 (03:11→22:10)
[2017-06-02 04:08] LABS: AUTOMATED NEUTROPHIL # 5.6 TH/MM3 (1.8-7.7); BASOPHIL % 0.5 % (0.0-2.0); HEMATOCRIT 37.6 % (39.0-51.0); HEMO FLAGS DIFF FINAL; LYMPH % 18.3 % (9.0-44.0); LYMPHOCYTE # 1.4 TH/MM3 (1.0-4.8); MEAN CELL VOLUME 92.1 FL (80.0-100.0); MEAN CORPUSCULAR HEMOGLOBIN 30.2 PG (27.0-34.0); MEAN CORPUSCULAR HGB CONC 32.8 % (32.0-36.0); MONO % 6.6 % (0.0-8.0); NEUT % 74.6 % (16.0-70.0); PLATELET COUNT 101 TH/MM3 (150-450); RED BLOOD COUNT 4.08 MIL/MM3 (4.50-5.90); RED CELL DISTRIBUTION WIDTH 14.1 % (11.6-17.2); WHITE BLOOD COUNT 7.5 TH/MM3 (4.0-11.0)
[2017-06-02 04:37] LABS: ALKALINE PHOSPHATASE 45 U/L (45-117); ALT (GPT) 18 U/L (12-78); ANION GAP 11 MEQ/L (5-15); AST (GOT) 15 U/L (15-37); BICARBONATE 24.3 MEQ/L (21.0-32.0); BLOOD UREA NITROGEN 14 MG/DL (7-18); CHLORIDE 106 MEQ/L (98-107); GLOMERULAR FILTRATION RATE 84 ML/MIN (>89); SODIUM (NA) 141 MEQ/L (136-145); TOTAL BILIRUBIN ADULT 0.7 MG/DL (0.2-1.0)
[2017-06-02] MEDS: VENLAFAXINE HCL XR 75 MG CAP PO SCH (07:48)
[2017-06-02] MEDS: MULTIVITAMINS/MINERALS THERAPEUTIC TAB PO SCH (07:48)
[2017-06-02] MEDS: PANTOPRAZOLE SODIUM 40 MG VIAL IV SCH (07:48)
[2017-06-02] MEDS: SODIUM CHLOR 0.9% 1000 ML INJ 1,000 ML IV SCH (07:48)
[2017-06-02] MEDS: SODIUM CHLORIDE 0.9% FLUSH 10 ML FLUSH IV FLUSH SCH ×2 (07:48→20:42)
[2017-06-02] MEDS: GABAPENTIN 100 MG CAP PO SCH ×4 (07:49→20:40)
[2017-06-02] MEDS: CARBIDOPA/LEVODOPA 25 MG/100 MG TAB PO SCH ×3 (07:49→17:25)
[2017-06-02] MEDS: DOCUSATE SODIUM 50 MG/SENNA 8.6 MG TAB PO SCH ×2 (07:49→20:41)
[2017-06-02] MEDS ORDERED: NON-FORMULARY DRUG (Venlafaxine (Effexor) 75 MG) PO SCH (09:00)
[2017-06-02] MEDS ORDERED: MULTIPLE VITAMINS PO SCH (09:00)
[2017-06-02] MEDS ORDERED: ROPINIROLE PO SCH ×2 (09:00)
[2017-06-02] MEDS ORDERED: MINERALS PO SCH (09:00)
[2017-06-02] MEDS: LEVOFLOXACIN 500 MG PREMIX INJ 100 ML IV SCH (10:35)
--- NOTE | 2017-06-02 11:17 | HHI.CCPN ---
Subjective Remarks/Hospital Course 06/01: 82-year-old male with a medical history significant for Parkinson's disease who developed lower abdominal pain 1 day prior to presentation. He was noted to be hypotensive on arrival in the ER. Hypotension responded to 1 L fluid bolus. He underwent imaging studies including CT abdomen and pelvis which revealed acute appendicitis. Chest x-ray showed a left lower lobe infiltrate. Ration was initiated on empiric antibiotic coverage with IV Levaquin and Flagyl. Dr. Stewart from general surgery was contacted and per ER physician is planning appendectomy today. Critical care service was contacted to accept patient for admission. When I evaluated the patient and the ER he was resting in the ER stretcher comfortably did not appear to be in any acute distress. History was obtained by discussion with patient and his family members as well as reviewing records and discussion with ER physician and ER nursing staff. 06/02: Underwent laparoscopic appendectomy on 06/01, tolerated procedure well. This morning he is laying comfortably in bed not in any acute distress. Tolerating clear liquids. Objective Vital Signs Date Time Temp Pulse Resp B/P Pulse Ox O2 Delivery O2 Flow Rate FiO2 06/02/17 10:30 93 Nasal Cannula 4.00 Humidified 06/02/17 10:00 62 06/02/17 08:00 97.6 21 114/56 Intake and Output 06/01/17 06/01/17 06/02/17 08:00 16:00 00:00 Intake Total 105 ml 1121 ml Output Total 50 ml Balance 105 ml 1071 ml Result Diagram: 06/02/17 0349 06/02/17 0349 Other Results Microbiology Date/Time Procedure Status Source Growth 06/01/17 10:09 Influenza Types A,B Antigen (ANNA) - Final Complete Nasal Washing NEGATIVE FOR FLU A AND B ANTIGEN.... Imaging Last Impressions Abdomen/Pelvis CT 06/01/17 0924 Signed Impressions: Service Date/Time: Thursday, June 01, 2017 09:41 - CONCLUSION: 1. Acute appendicitis. 2. Diverticulosis. 3. Atherosclerosis. 4. Right renal cyst. 5. Fat containing right inguinal hernia. Victor Manuel Owens MD Chest X-Ray 06/01/17 0913 Signed Impressions: Service Date/Time: Thursday, June 01, 2017 09:19 - CONCLUSION: Left lower lobe airspace disease. Victor Manuel Owens MD Objective Remarks HEENT/Neuro: No pallor or icterus, tongue moist, NEO, Awake alert oriented 3 , nonfocal grossly, moving all 4 extremities Neck: No JVD Chest/pulmonary: CTA bilaterally Cardiovascular: S1-S2 regular no gallop or murmur GI/abdomen: Soft, port sites noted over anterior abdominal wall, minimal tenderness in lower abdomen, bowel sounds present. No organomegaly appreciated Extremities: Warm bilaterally, no edema A/P Assessment and Plan 82-year-old male with: Abdominal pain Acute appendicitis Hypotension Parkinson's disease History of prostate cancer Plan: Neuro: Resumed medications for Parkinson's disease. Follow neuro status. Postop pain meds per general surgery. Cardiovascular: Status post 1.5 L normal saline bolus. We'll continue maintenance IV fluids with normal saline at 100 cc an hour. Watch for hypotension. Pulmonary: Supplemental O2 as needed. GI/liver: Gen. surgery consulted for acute appendicitis. Status post laparoscopic appendectomy on 06/01. Advance by mouth diet per general surgery. Renal/: Strict intake output, monitor and replete electrolites, follow BUN/ creatinine. IV hydration ID: Empiric antibiotic coverage with IV Levaquin and Flagyl. Follow-up cultures. Endocrine: Watch for hyperglycemia, SSI for glycemic control if needed. Prophylaxis: PPI/SCDs. Subcutaneous heparin when okay with general surgery. Transfer to hospitalist service. Transfer out of ICU. Further recommendations per general surgery. Critical care will be signing off at this time. Please reconsult if needed. Varghese Lama MD Jun 02, 2017 11:17
--- NOTE | 2017-06-02 11:46 | HHI.PR ---
Subjective Subjective Notes He is hungry. Tolerating clears. Abdomen a little sore. BP has been stable. Ann placed last night for retention. Objective Vitals/I&O Vital Signs Date Time Temp Pulse Resp B/P Pulse Ox O2 Delivery O2 Flow Rate FiO2 06/02/17 11:44 96 Nasal Cannula 3.00 Humidified 06/02/17 10:00 62 06/02/17 08:00 97.6 21 114/56 Labs Laboratory Tests Test 06/01/17 06/01/17 06/02/17 14:00 15:50 03:49 Nasal Screen MRSA (PCR) MRSA NOT DETECTED Urine Color YELLOW Urine Turbidity HAZY Urine pH 5.5 Urine Specific Clarkson 1.021 Urine Protein TRACE Urine Glucose (UA) NEG Urine Ketones 10 Urine Occult Blood NEG Urine Nitrite NEG Urine Bilirubin NEG Urine Urobilinogen LESS THAN 2.0 Urine Leukocyte Esterase NEG Urine RBC 1 Urine WBC 2 Urine Hyaline Casts 1 Urine Mucus FEW Microscopic Urinalysis Comment CATH-CULT NOT IND White Blood Count 7.5 Red Blood Count 4.08 Hemoglobin 12.3 Hematocrit 37.6 Mean Corpuscular Volume 92.1 Mean Corpuscular Hemoglobin 30.2 Mean Corpuscular Hemoglobin 32.8 Concent Red Cell Distribution Width 14.1 Platelet Count 101 Mean Platelet Volume 9.8 Neutrophils (%) (Auto) 74.6 Lymphocytes (%) (Auto) 18.3 Monocytes (%) (Auto) 6.6 Eosinophils (%) (Auto) 0.0 Basophils (%) (Auto) 0.5 Neutrophils # (Auto) 5.6 Lymphocytes # (Auto) 1.4 Monocytes # (Auto) 0.5 Eosinophils # (Auto) 0.0 Basophils # (Auto) 0.0 CBC Comment DIFF FINAL Differential Comment Sodium Level 141 Potassium Level 4.0 Chloride Level 106 Carbon Dioxide Level 24.3 Anion Gap 11 Blood Urea Nitrogen 14 Creatinine 0.87 Estimat Glomerular Filtration 84 Rate Random Glucose 109 Calcium Level 7.7 Phosphorus Level 3.3 Magnesium Level 2.0 Total Bilirubin 0.7 Aspartate Amino Transf 15 (AST/SGOT) Alanine Aminotransferase 18 (ALT/SGPT) Alkaline Phosphatase 45 Total Protein 5.7 Albumin 2.8 Date/Time Procedure Status Source Growth 06/01/17 10:09 Influenza Types A,B Antigen (ANNA) - Final Complete Nasal Washing NEGATIVE FOR FLU A AND B ANTIGEN.... 06/01/17 09:29 Aerobic Blood Culture - Preliminary Resulted Blood Peripheral NO GROWTH IN 1 DAY 06/01/17 09:29 Anaerobic Blood Culture - Preliminary Resulted Blood Peripheral NO GROWTH IN 1 DAY Radiology Last Impressions Abdomen/Pelvis CT 06/01/17923 Signed Impressions: Service Date/Time: Thursday, June 01, 2017 09:41 - CONCLUSION: 1. Acute appendicitis. 2. Diverticulosis. 3. Atherosclerosis. 4. Right renal cyst. 5. Fat containing right inguinal hernia. Victor Manuel Owens MD Chest X-Ray 06/01/17912 Signed Impressions: Service Date/Time: Thursday, June 01, 2017 09:19 - CONCLUSION: Left lower lobe airspace disease. Victor Manuel Owens MD Narrative Exam NAD, sitting up in chair RRR Abd: mod distention, soft, min post op ttp, inc c/d/i A/P Assessment and Plan 82 yo M POD 1 s/p lap appy. Stable post op. Ok for transfer. Reg diet Cont IV antibiotics OOB with assistance, Consult PT Terry,Gonzalez CURTIS Jun 02, 2017 11:46
[2017-06-02] MEDS: ROPINIROLE 2 MG PO SCH (14:20)
[2017-06-03] VITALS: BP 122/64; PULSE 72; RESP 18; TEMP 97.3; O2SAT 94
[2017-06-03] MEDS: metroNIDAZOLE 500 MG INJ 100 ML IV SCH ×2 (02:27→08:55)
[2017-06-03 04:00] VITALS: BP 126/67; PULSE 66; RESP 18; TEMP 96.8; O2SAT 95
[2017-06-03] MEDS: CHLORHEXIDINE GLUCONATE 2 % 1 PACK (2 CLOTHS) TOP SCH (04:00)
[2017-06-03] MEDS: RESP: ALBUTEROL 2.5 MG/IPRATROPIUM 0.5 MG NEB (SCH) INH ×2 (04:00→08:39)
[2017-06-03 08:00] VITALS: BP 140/80; PULSE 65; RESP 17; TEMP 95.6; O2SAT 92
--- NOTE | 2017-06-03 08:41 | HHI.PR ---
Subjective Remarks resting comfortably with no distress. has mild abdominal pain. no nausea or vomiting. afebrile. Objective Vitals Vital Signs Date Time Temp Pulse Resp B/P Pulse Ox O2 Delivery O2 Flow Rate FiO2 06/03/17 04:00 96.8 66 18 126/67 95 06/03/17 00:00 97.3 72 18 122/64 94 06/02/17 22:10 93 Nasal Cannula 2.00 06/02/17 20:37 92 Nasal Cannula 2.00 06/02/17 20:35 80 06/02/17 20:00 96.7 75 18 114/60 92 06/02/17 18:30 98.9 74 18 109/67 88 06/02/17 16:00 66 06/02/17 16:00 98.7 66 17 108/59 93 06/02/17 12:00 65 06/02/17 12:00 97 Room Air 06/02/17 12:00 97.8 65 22 97/55 97 06/02/17 11:44 96 Nasal Cannula 3.00 Humidified 06/02/17 10:30 93 Nasal Cannula 4.00 Humidified 06/02/17 10:00 62 I/O 06/02/17 06/02/17 06/02/17 06/03/17 06/03/17 06/03/17 07:00 15:00 23:00 07:00 15:00 23:00 Intake Total 694 ml 1150 ml 874 ml 420 ml Output Total 1525 ml 950 ml 500 ml 975 ml Balance -831 ml 200 ml 374 ml -555 ml Intake Oral 536 ml 770 ml 320 ml IV Total 694 ml 614 ml 104 ml 100 ml Output Urine Total 1525 ml 950 ml 500 ml 975 ml # Bowel Movements 0 0 0 0 Result Diagram: 06/02/179 06/02/17348 Imaging Last Impressions Abdomen/Pelvis CT 06/01/17923 Signed Impressions: Service Date/Time: Thursday, June 01, 2017 09:41 - CONCLUSION: 1. Acute appendicitis. 2. Diverticulosis. 3. Atherosclerosis. 4. Right renal cyst. 5. Fat containing right inguinal hernia. Victor Manuel Owens MD Chest X-Ray 06/01/17 0913 Signed Impressions: Service Date/Time: Thursday, June 01, 2017 09:19 - CONCLUSION: Left lower lobe airspace disease. Victor Manuel Owens MD Objective Remarks GENERAL: This is a well-nourished, well-developed patient, in no apparent distress. CARDIOVASCULAR: Regular rate and irregular rhythm without murmurs, gallops, or rubs. RESPIRATORY: Clear to auscultation. Breath sounds equal bilaterally. No wheezes , rales, or rhonchi. GASTROINTESTINAL: Abdomen soft, non-tender, nondistended. Normal, active bowel sounds MUSCULOSKELETAL: Extremities without clubbing, cyanosis, or edema. NEURO: Alert & Oriented x4 to person, place, time, situation. Moves all ext x4 Procedures lap appendectomy Medications and IVs Current Medications Sodium Chloride 1,000 ml @ 999 mls/hr BOLUS ONCE IV Last administered on 09:44; Start 06/01/17 at 09:30; Stop 06/01/17 at 10:30; Status DC Levofloxacin/ Dextrose 100 ml @ 100 mls/hr ONCE ONCE IV Last administered on 06/01/17 10:46; Start 06/01/17 at 10:15; Stop 06/01/17 at 11:14; Status DC Sodium Chloride 500 ml @ 500 mls/hr BOLUS ONCE IV Last administered on 10:46; Start 06/01/17 at 10:15; Stop 06/01/17 at 11:14; Status DC Metronidazole 100 ml @ 100 mls/hr ONCE STAT IV Last administered on 06/01/17 10:16; Start 06/01/17 at 10:16; Stop 06/01/17 at 11:15; Status DC Norepinephrine Bitartrate 250 ml @ 0 mls/hr TITRATE IV ; Start 06/01/17 at 10:30 ; Stop 06/02/17 at 11:45; Status DC Sodium Chloride (NS 1000 ml Inj) 1,000 ml @ 100 mls/hr Q10H IV Last administered on 06/02/17 07:48; Start 06/01/17 at 12:00; Stop 06/02/17 at 11:45; Status DC Sodium Chloride (NS Flush) 2 ml UNSCH PRN IV FLUSH FLUSH AFTER USING IV ACCESS ; Start 06/01/17 at 12:15 Sodium Chloride (NS Flush) 2 ml BID IV FLUSH Last administered on 06/02/17 20: 42; Start 06/01/17 at 21:00 Acetaminophen (Tylenol) 650 mg Q6H PRN PO FEVER >101F; Start 06/01/17 at 12:15 Pantoprazole Sodium (Protonix Inj) 40 mg DAILY IV Last administered on 07:48; Start 06/01/17 at 12:30 Ondansetron HCl (Zofran Inj) 4 mg Q6H PRN IV NAUSEA OR VOMITING; Start 06/01/17 at 12:15 Metoclopramide HCl (Reglan Inj) 10 mg Q6H PRN IV NAUSEA OR VOMITING; Start 06/01 at 12:15 Albuterol/ Ipratropium (Duoneb Neb) 1 ampule Q6HR NEB INH Last administered on 06/02/17 22:10; Start 06/01/17 at 16:00 Albuterol/ Ipratropium (Duoneb Neb) 1 ampule Q2HR NEB PRN INH WHEEZING; Start 06/01/17 at 12:15 Miscellaneous Information 1 Q361D XX ; Start 06/01/17 at 12:15 Chlorhexidine Gluconate (Chlorhexidine 2% Cloth) 3 pack Taper DAILY@04 TOP Last administered on 06/02/17 03:07; Start 06/02/17 at 04:00; Stop 05/29/18 at 03: 59 Chlorhexidine Gluconate (Chlorhexidine 2% Cloth) 3 pack UNSCH PRN TOP HYGIENIC CARE; Start 06/01/17 at 12:15 Senna/Docusate Sodium (Lolis-Colace) 1 tab BID PO Last administered on 06/02/17 20:41; Start 06/02/17 at 09:00 Magnesium Hydroxide (Milk Of Magnesia Liq) 30 ml Q12H PRN PO MILD - MODERATE CONSTIPATION; Start 06/01/17 at 12:15 Sennosides (Senokot) 17.2 mg Q12H PRN PO MODERATE - SEVERE CONSTIPATION; Start 06/01/17 at 12:15 Bisacodyl (Dulcolax Supp) 10 mg DAILY PRN RECTAL SEVERE CONSITIPATION; Start at 12:15 Lactulose 30 ml 30 ml DAILY PRN PO SEVERE CONSITIPATION; Start 06/01/17 at 12:15 Levofloxacin/ Dextrose 100 ml @ 100 mls/hr Q24H IV Last administered on 10:35; Start 06/02/17 at 11:00 Metronidazole (Flagyl 500 Mg Inj) 100 ml @ 100 mls/hr Q8H IV Last administered on 06/03/17 02:27; Start 06/01/17 at 18:00 Bupivacaine HCl (Marcaine Pf 0.5% Inj) 30 ml STK-MED ONCE INFIL Last administered on 06/01/17 17:30; Start 06/01/17 at 17:30; Stop 06/01/17 at 18:19; Status DC Acetaminophen/ Hydrocodone Bitart (Clifton 5-325 Mg) 1 tab Q6H PRN PO PAIN SCALE 4 TO 10 Last administered on 06/02/17 20:41; Start 06/01/17 at 18:30 Miscellaneous Information ALL NURSING DEPARTME... UNSCH PRN .XX SEE LABEL COMMENTS; Start 06/01/17 at 18:45; Stop 06/02/17 at 18:44; Status DC Midazolam HCl (Versed Inj) 2 mg STK-MED ONCE .ROUTE ; Start 06/01/17 at 18:43; Stop 06/01/17 at 18:44; Status DC Fentanyl Citrate (fentaNYL INJ) 250 mcg STK-MED ONCE .ROUTE ; Start 06/01/17 at 18:43; Stop 06/01/17 at 18:44; Status DC Carbidopa/Levodopa (Sinemet 25-100 Mg) 2 tab TID PO Last administered on 17:25; Start 06/02/17 at 09:00 Gabapentin (Neurontin) 100 mg TID PO Last administered on 06/02/17 17:25; Start 06/02/17 at 09:00 Gabapentin (Neurontin) 200 mg HS PO Last administered on 06/02/17 20:40; Start 06/01/17 at 21:00 Non-Formulary Medication 1 drop BID EACH EYE DRYEYE; Start 06/01/17 at 21:00; Stop 06/01/17 at 21:00; Status DC Non-Formulary Medication 1 cap DAILY PO NS; Start 06/02/17 at 09:00; Stop at 09:00; Status DC Non-Formulary Medication 4 mg HS PO ; Start 06/01/17 at 21:00; Stop 06/01/17 at 21 :00; Status DC Non-Formulary Medication 18 mg DAILY PO ; Start 06/02/17 at 09:00; Stop 06/02/17 at 09:00; Status DC Non-Formulary Medication 75 mg DAILY PO ; Start 06/02/17 at 09:00; Stop 06/02/17 at 09:00; Status DC Multivitamins/ Minerals Therapeutic (Theragran M Tab) 1 tab DAILY PO Last administered on 06/02/17 07:48; Start 06/02/17 at 09:00 Venlafaxine HCl (Effexor Xr) 75 mg DAILY PO Last administered on 06/02/17 07:48 ; Start 06/02/17 at 09:00 Patient Own Medication PT OWN MED:Cyclosporine Opth 0.... BID EACH EYE ; Start 06/01/17 at 21:00; Status Hold Ropinirole HCl (Requip) 4 mg HS PO Last administered on 06/02/17 20:41; Start 06/01/17 at 21:00 Patient Own Medication PT OWN MED: NON-FORMULARY D... DAILY PO ; Start 06/02/17 at 09:00; Stop 06/02/17 at 14:09; Status DC Patient Own Medication PT OWN MED: Ropinir... DAILY PO ; Start 06/02/17 at 15:00 A/P Assessment and Plan A/P - acute appendicitis s/p appendectomy- management per general surgery -questionable LLL pneumonia continue with antibiotics- continue neb treatment-will do walk test prior to discharge. -parkinson's disease- continue Dilip Machado MD Jun 03, 2017 08:41
[2017-06-03 08:42] VITALS: O2SAT 93
[2017-06-03] MEDS: ROPINIROLE 2 MG PO SCH (08:53)
[2017-06-03] MEDS: MULTIVITAMINS/MINERALS THERAPEUTIC TAB PO SCH (08:54)
[2017-06-03] MEDS: VENLAFAXINE HCL XR 75 MG CAP PO SCH (08:54)
[2017-06-03] MEDS: DOCUSATE SODIUM 50 MG/SENNA 8.6 MG TAB PO SCH (08:54)
[2017-06-03] MEDS: GABAPENTIN 100 MG CAP PO SCH ×2 (08:54→12:41)
[2017-06-03] MEDS: PANTOPRAZOLE SODIUM 40 MG VIAL IV SCH (08:54)
[2017-06-03] MEDS: CARBIDOPA/LEVODOPA 25 MG/100 MG TAB PO SCH ×2 (08:54→12:41)
[2017-06-03] MEDS: SODIUM CHLORIDE 0.9% FLUSH 10 ML FLUSH IV FLUSH SCH (08:55)
[2017-06-03] MEDS: LEVOFLOXACIN 500 MG PREMIX INJ 100 ML IV SCH (11:20)
[2017-06-03 12:00] VITALS: BP 116/73; PULSE 71; RESP 17; TEMP 96.4; O2SAT 93
[2017-06-03] MEDS ORDERED: LEVO750T3 PO (12:06)
[2017-06-03] MEDS ORDERED: HYDR-3516 PO (12:06)
[2017-06-03] MEDS ORDERED: METR-1 PO (12:06)
--- NOTE | 2017-06-03 12:08 | HHI.PR ---
Subjective Subjective Notes Tolerating clears and small amt solid food. No bowel movt. + flatus. Objective Vitals/I&O Vital Signs Date Time Temp Pulse Resp B/P Pulse Ox O2 Delivery O2 Flow Rate FiO2 06/03/17 08:45 Nasal Cannula 2.00 06/03/17 08:42 93 06/03/17 08:00 95.6 65 17 140/80 Labs Date/Time Procedure Status Source Growth 06/01/17 10:09 Influenza Types A,B Antigen (ANNA) - Final Complete Nasal Washing NEGATIVE FOR FLU A AND B ANTIGEN.... 06/01/17 09:29 Aerobic Blood Culture - Preliminary Resulted Blood Peripheral NO GROWTH IN 2 DAYS 06/01/17 09:29 Anaerobic Blood Culture - Preliminary Resulted Blood Peripheral NO GROWTH IN 2 DAYS Radiology Last Impressions Abdomen/Pelvis CT 06/01/17923 Signed Impressions: Service Date/Time: Thursday, June 01, 2017 09:41 - CONCLUSION: 1. Acute appendicitis. 2. Diverticulosis. 3. Atherosclerosis. 4. Right renal cyst. 5. Fat containing right inguinal hernia. Victor Manuel Owens MD Chest X-Ray 06/01/17912 Signed Impressions: Service Date/Time: Thursday, June 01, 2017 09:19 - CONCLUSION: Left lower lobe airspace disease. Victor Manuel Owens MD Narrative Exam NAD, sitting up in chair RRR Abd: mod distention, soft, min post op ttp, inc c/d/i A/P Assessment and Plan 82 yo M POD 2 s/p lap appy. Stable. Will give laxative. Ok for dc from my standpoint. F/u in two weeks. Rx in chart for antibiotics and pain meds. Gonzalez Stewart MD Jun 03, 2017 12:08
--- NOTE | 2017-06-03 12:54 | HHI.DCPOC ---
Discharge Care Plan Diagnosis: (1) Acute appendicitis Your Health Problems Are: Inflammation Goals to Promote Your Health * To prevent worsening of your condition and complications * To maintain your health at the optimal level Directions to Meet Your Goals Take your medications as prescribed Follow your dietary instruction Follow activity as directed Keep your appointments as scheduled Take your immunizations and boosters as scheduled If your symptoms worsen call your PCP, if no PCP go to Urgent Care Center or Emergency Room Smoking is Dangerous to Your Health. Avoid second hand smoke Call the 24-hour hour crisis hotline for domestic abuse at Dilip Jeter MD Jun 03, 2017 12:54
--- NOTE | 2017-06-03 12:55 | HHI.DS ---
Discharge Summary Admission Date Jun 01, 2017 at 11:07 Discharge Date: Jun 03, 2017 Admitting Diagnosis ACUTE APPY/LLL PNA WITH HYPOXEMIA/SEPTIC SHOCK (1) Acute appendicitis ICD Code: K35.80 Diagnosis: Principal Procedures lap appendectomy Brief History - From Admission HPI: s 82-year-old male with a medical history significant for Parkinson's disease who developed lower abdominal pain 1 day prior to presentation. He was noted to be hypotensive on arrival in the ER. Hypotension responded to 1 L fluid bolus. He underwent imaging studies including CT abdomen and pelvis which revealed acute appendicitis. Chest x-ray showed a left lower lobe infiltrate. Ration was initiated on empiric antibiotic coverage with IV Levaquin and Flagyl. Dr. Stewart from general surgery was contacted and per ER physician is planning appendectomy today. Critical care service was contacted to accept patient for admission. When I evaluated the patient and the ER he was resting in the ER stretcher comfortably did not appear to be in any acute distress. History was obtained by discussion with patient and his family members as well as reviewing records and discussion with ER physician and ER nursing staff. History PFSH Past Medical History Asthma: No Autoimmune Disease: No Blood Disorders: No Depression: Yes Cancer: Yes (PROSTATE) Cardiovascular Problems: No High Cholesterol: Yes COPD: No Diabetes: No Patient Takes Glucophage: No Diminished Hearing: Yes (bilat) Endocrine: No Glaucoma: Yes Genitourinary: Yes (PROSTATE CANCER) Headaches: Yes Hepatitis: No Hiatal Hernia: No Hypertension: Yes Immune Disorder: No Musculoskeletal: Yes (ARTHRITIS) Neurologic: Yes (PARKINSON'S DISEASE) Parkinson's Disease: Yes Psychiatric: Yes Respiratory: No Immunizations Current: Yes Thyroid Disease: No Past Surgical History Abdominal Surgery: No AICD: No Body Medical Devices: PENILE PROTHESIS Cardiac Surgery: No Ear Surgery: No Endocrine Surgery: No Eye Surgery: Yes (BILATERAL CATARACT EXTRACTION W/LENS IMPLANT; ) Genitourinary Surgery: Yes (PROSTATECTOMY/PENILE IMPLANT) Joint Replacement: No Neurologic Surgery: Yes (ANTERIOR CERVICAL LAMINECTOMY ) Oral Surgery: No Pacemaker: No Prostatectomy: Yes Thoracic Surgery: No Tonsillectomy: Yes Other Surgery: Yes Social History Alcohol Use: No Tobacco Use: No Substance Use: No Allergies-Medications Allergies-Medications (Allergen,Severity, Reaction): Coded Allergies: Penicillin (Verified Allergy, Mild, 04/13/17) Tobrex (Verified Allergy, Mild, 04/13/17) Reported Meds & Prescriptions Reported Meds & Active Scripts Active Reported Gabapentin 100 Mg Cap 200 Mg PO HS Gabapentin 100 Mg Cap 100 Mg PO TID Sinemet (Carbidopa-Levodopa) 25-100 Mg Tab 2 Tab PO TID Tramadol (Tramadol HCl) 50 Mg Tab 50 Mg PO Q6H PRN Ropinirole 4 Mg Tab 4 Mg PO HS 14 Days Aleve (Naproxen Sodium) 220 Mg Capsule 220-440 Mg PO BID PRN Cetirizine (Cetirizine HCl) 10 Mg Tab 10 Mg PO DAILY Aspirin Adult Low Strength (Aspirin) 81 Mg Tabdr 81 Mg PO MOWEFR Take 1 tablet daily on Wednesday,Wednesday and Wednesday Ropinirole ER 2 Mg Tab 18 Mg PO DAILY Preservision-Lutein (Multiple Vitamins W/ Minerals) 1 Cap 1 Cap PO DAILY Restasis Opth 0.05% (Cyclosporine Opth 0.05%) 0.05% Emul 1 Drop EACH EYE BID Effexor (Venlafaxine HCl) 75 Mg Tab 75 Mg PO DAILY Lipitor (Atorvastatin Calcium) 10 Mg Tab 10 Mg PO HS ROS Review of Systems ROS Limitations: Altered Mental Status General / Constitutional: Positive: Other (GEN WEAKNESS) Respiratory: Positive: Cough GI: Abd pain CBC/BMP: 06/02/17 0349 06/02/17 0349 Significant Findings Laboratory Tests Test 06/01/17 06/01/17 06/01/17 06/02/17 09:30 09:31 15:50 03:49 Arterial Blood pH 7.49 (7.380-7.420) Arterial Blood Partial 33 mmHg (38-42) Pressure CO2 Arterial Blood Partial 59 mmHG Pressure O2 (61-120) Platelet Count 132 TH/MM3 101 TH/MM3 (150-450) (150-450) Neutrophils (%) (Auto) 83.6 % 74.6 % (16.0-70.0) (16.0-70.0) Lymphocytes # (Auto) 0.8 TH/MM3 (1.0-4.8) Blood Urea Nitrogen 19 MG/DL (7-18) Estimat Glomerular Filtration 61 ML/MIN (>89) 84 ML/MIN (>89) Rate Random Glucose 112 MG/DL 109 MG/DL (74-106) (74-106) Alanine Aminotransferase 8 U/L (12-78) (ALT/SGPT) Troponin I LESS THAN 0.02 NG/ML (0.02-0.05) Urine Turbidity HAZY (CLEAR) Urine Ketones 10 mg/dL (NEG) Urine Mucus FEW /lpf (OCC) Red Blood Count 4.08 MIL/MM3 (4.50-5.90) Hemoglobin 12.3 GM/DL (13.0-17.0) Hematocrit 37.6 % (39.0-51.0) Calcium Level 7.7 MG/DL (8.5-10.1) Total Protein 5.7 GM/DL (6.4-8.2) Albumin 2.8 GM/DL (3.4-5.0) Imaging Last Impressions Abdomen/Pelvis CT 06/01/17923 Signed Impressions: Service Date/Time: Thursday, June 01, 2017 09:41 - CONCLUSION: 1. Acute appendicitis. 2. Diverticulosis. 3. Atherosclerosis. 4. Right renal cyst. 5. Fat containing right inguinal hernia. Victor Manuel Owens MD Chest X-Ray 06/01/17912 Signed Impressions: Service Date/Time: Thursday, June 01, 2017 09:19 - CONCLUSION: Left lower lobe airspace disease. Victor Manuel Owens MD PE at Discharge GENERAL: This is a well-nourished, well-developed patient, in no apparent distress. CARDIOVASCULAR: Regular rate and irregular rhythm without murmurs, gallops, or rubs. RESPIRATORY: Clear to auscultation. Breath sounds equal bilaterally. No wheezes , rales, or rhonchi. GASTROINTESTINAL: Abdomen soft, non-tender, nondistended. Normal, active bowel sounds MUSCULOSKELETAL: Extremities without clubbing, cyanosis, or edema. NEURO: Alert & Oriented x4 to person, place, time, situation. Moves all ext x4 Hospital Course - acute appendicitis s/p appendectomy- management per general surgery -questionable LLL pneumonia continue with antibiotics- continue neb treatment-will do walk test prior to discharge. -parkinson's disease- continue Sinemet Pt Condition on Discharge: Good Discharge Disposition: Discharge Home Discharge Time: <= 30 minutes Discharge Instructions DIET: Follow Instructions for: Heart Healthy Diet Activities you can perform: Regular-No Restrictions Follow up Referrals: PCP Follow-up Surgical - 2 Weeks with Gonzalez Stewart MD New Medications: Levofloxacin (Levofloxacin) 750 Mg Tablet 750 MG PO DAILY Infection #5 Ref 0 TAB Metronidazole (Flagyl) 500 Mg Tab 500 MG PO TID Infection #15 Ref 0 TAB Hydrocodone-Acetaminophen (Hydrocodone-Acetaminophen) 5-325 mg Tab 1 TAB PO Q6H PRN PAIN #15 TAB Continued Medications: Aspirin DR (Aspirin Adult Low Strength) 81 Mg Tabdr 81 MG PO MOWEFR Take 1 tablet daily on Wednesday,Wednesday and Wednesday TAB Atorvastatin (Lipitor) 10 Mg Tab 10 MG PO HS Cholesterol Management #30 Ref 0 TAB Carbidopa-Levodopa (Sinemet) 25-100 Mg Tab 2 TAB PO TID Parkinson Disease Mgmt #90 Ref 0 TAB Cetirizine (Cetirizine) 10 Mg Tab 10 MG PO DAILY Allergies Ref 0 TAB Cyclosporine Opth 0.05% (Restasis Opth 0.05%) 0.05% Emul 1 DROP EACH EYE BID Dry Eye #1 Ref 0 BOX Gabapentin (Gabapentin) 100 Mg Cap 100 MG PO TID #90 Ref 0 CAP Gabapentin (Gabapentin) 100 Mg Cap 200 MG PO HS #30 Ref 0 CAP Multiple Vitamins W/ Minerals (Preservision-Lutein) 1 Cap 1 CAP PO DAILY Nutritional Supplement Ref 0 CAP Ropinirole (Ropinirole) 4 Mg Tab 4 MG PO HS Days 14 Ref 0 TAB Ropinirole ER (Ropinirole ER) 2 Mg Tab 18 MG PO DAILY Parkinson Disease Mgmt #30 Ref 0 TAB Venlafaxine (Effexor) 75 Mg Tab 75 MG PO DAILY #30 Ref 0 TAB Discontinued Medications: Naproxen Sodium (Aleve) 220 Mg Capsule 220-440 MG PO BID PRN PAIN Tramadol (Tramadol) 50 Mg Tab 50 MG PO Q6H PRN PAIN Ref 0 TAB Dilip Jeter MD Jun 03, 2017 12:55
[2017-06-03] MEDS ORDERED: DOCUSATE SODIUM 100 MG CAP PO SCH (13:00)
[2017-06-03] MEDS ORDERED: MAGNESIUM HYDROXIDE SUSP 30 ML CUP PO ONE (13:30)
--- NOTE | 2017-06-03 14:25 | HHI.FF ---
Face to Face Verification Diagnosis: (1) Acute appendicitis Physical Therapy Order: Evaluate and Treat Home Health Nursing Order: Medical education Signs/symptoms of disease process Medication education-adverse effect Nursing assessment with vital signs I have seen patient Atul Huffman on 06/03/17. My clinical findings support the need for the requested home health care services because: Ltd mobility - disease progression I certify that my clinical findings support that this patient is homebound because: Unsteady gait/balance Dilip Jeter MD Jun 03, 2017 14:25
[2017-06-03] MEDS ORDERED: metroNIDAZOLE 500 MG TAB PO SCH (17:00)
[2017-06-04] MEDS ORDERED: LEVOFLOXACIN 750 MG TAB PO SCH (09:00)
== END 2017-06-03 15:27 | disposition home or self-care (01) | DRG 341 ==
LOC: NEPC 09:05 → NEDA 11:07 → N03A 17:27 → N07B 06-02 18:18
PROVIDERS: ADMIT Internal Medicine; ATTEND Internal Medicine
PROC: 0DTJ4ZZ Resection of Appendix, Percutaneous Endoscopic Approach (ICD-10-PCS; principal; 2017-06-01 17:00)
DX: K35.80 Unspecified acute appendicitis (principal); A41.9 Sepsis, unspecified organism; J18.9 Pneumonia, unspecified organism; E78.00 Pure hypercholesterolemia, unspecified; G20 Parkinson's disease; I10 Essential (primary) hypertension; K40.90 Unilateral inguinal hernia, without obstruction or gangrene, not specified as recurrent; K57.90 Diverticulosis of intestine, part unspecified, without perforation or abscess without bleeding; N28.1 Cyst of kidney, acquired; R09.02 Hypoxemia; Z85.46 Personal history of malignant neoplasm of prostate; Z87.01 Personal history of pneumonia (recurrent); H40.9 Unspecified glaucoma; H91.90 Unspecified hearing loss, unspecified ear
CPT/HCPCS: 36600; 71010; 74176; 80053; 81001; 82550; 82805; 82948; 83605; 83690; 83735; 84100; 84484; 85025; 85610; 85730; 87040; 87641; 87804; 88304; 93005; 94620; 94640; 94664; 96361; 96365; 96368; C9113; J1956; J2250; J2370; J2405; J2710; J3010; J7030; J7040